=== PATIENT | male | born 1945 | race Caucasian/White ===

== ENCOUNTER 2022-07-12 14:45 | Emergency (ER) | payer OTHER ==
[2022-07-12 15:14] VITALS: BP 185/74; PULSE 84; RESP 18; TEMP 99.2; BMI 21.8
[2022-07-12] MEDS ORDERED: DIPHTH,PERTUSS(ACELL),TET 0.5 ML DISP.SYRIN IM ONE ×2 (15:53→16:04)
== END 2022-07-12 18:31 | disposition home or self-care (01) ==
LOC: JER 14:45
PROC: 3E0234Z Introduction of Serum, Toxoid and Vaccine into Muscle, Percutaneous Approach (ICD-10-PCS; principal; 2022-07-12)
DX: S00.81XA Abrasion of other part of head, initial encounter (principal); W19.XXXA Unspecified fall, initial encounter
CPT/HCPCS: 70450-TC; 71045-TC-FY; 72125-TC; 72170-TC-FY; 90471; 90715; 93005; 93010; 99285-25